=== PATIENT | female | born 1995 | race Caucasian/White ===

== ENCOUNTER 2022-05-09 13:25 | Emergency (ER) | payer OTHER ==
[~2022-05-09] VITALS: Ht 172.7 cm; Wt 101.0 kg
[2022-05-09 13:47] VITALS: BP 148/91
[2022-05-09] MEDS ORDERED: BENZ200C52 MT (15:31)
== END 2022-05-09 15:59 | disposition home or self-care (01) ==
LOC: ER 13:25
DX: U07.1 COVID-19 (principal); R04.2 Hemoptysis
CPT/HCPCS: 71045; 81025; 99283